=== PATIENT | female | born 1945 ===

== ENCOUNTER 2018-02-28 08:53 | Outpatient (CLI) | payer OTHER | END 2018-02-28 08:57 | disposition home or self-care (01) | LOC: MAMO-SONO 08:53 | DX: Z12.31 Encounter for screening mammogram for malignant neoplasm of breast (principal); Z87.898 Personal history of other specified conditions; N64.89 Other specified disorders of breast ==

== ENCOUNTER 2018-12-17 10:23 | Emergency (ER) | payer OTHER ==
[~2018-12-17] VITALS: Ht 157.5 cm; Wt 45.4 kg
[2018-12-17] MEDS ORDERED: ASPIR 8181 MG (11:08)
== END 2018-12-17 15:51 | disposition home or self-care (01) ==
LOC: ER 10:23
DX: M17.11 Unilateral primary osteoarthritis, right knee (principal); M25.561 Pain in right knee